=== PATIENT | female | born 1990 | race African-American/Black ===

== ENCOUNTER 2017-11-03 18:21 | Emergency (ER) | payer OTHER ==
[~2017-11-03] VITALS: Ht 162.6 cm; Wt 81.6 kg
[2017-11-03] MEDS ORDERED: NKM (18:41)
[2017-11-03 19:05] VITALS: BP 127/82
[2017-11-03] MEDS ORDERED: Dexamethasone 4mg/ml vial IVPB ONE (19:15)
[2017-11-03] MEDS ORDERED: Clindamycin 900mg 50 ML IVPB ONE (19:15)
[2017-11-03] MEDS ORDERED: Cetacaine Spray 50ml Btl TOPIC ONE (19:15)
[2017-11-03] MEDS ORDERED: Hurricaine 20% Spray ORO ONE (19:30)
[2017-11-03] MEDS ORDERED: Lidocaine 2% Visc 15ml soln ORAL ONE (19:45)
--- NOTE | 2017-11-03 19:57 | Emergency Room Report ---
History of Present Illness General Chief Complaint: Wound Recheck/Suture Removal Source: Patient Present Illness HPI 27 YO Female presents to the ED c/O Sore throat since 10/30 with fevers this past weekend. pt. has been doing mouth rinses and taking Motrin. pt. reports change in voice. She states her fever has not returned today and she is feeling slightly better. pt. reports pain is controlled at the moment and is 3/10 in severity. she reports previous pain was exacerbated with swallowing. Denies neck pain. Reports history of multiple episodes of tonsillitis since age of 7. Last incident of tonsil infection was 3 years ago. pt. reports that She was supposed to get tonsillectomy previously however was unable to due to work schedule. Denies CP, Palpitations, LOC, AMS, dizziness, Changes in Vision, Sensation, paresthesias, or a sudden severe headache. Allergies: Coded Allergies: No Known Allergies (Unverified , 11/03/17) Patient History Past Medical History: see triage record Past Surgical History: none Pertinent Family History: none Last Menstrual Period: 10/09/17 Now: No Reviewed Nursing Documentation: PMH: Agreed, PSxH: Agreed Review of Systems All Other Systems: negative except mentioned in HPI Physical Exam Vital Signs Date Time Temp Pulse Resp B/P (MAP) Pulse Ox O2 Delivery O2 Flow Rate FiO2 11/03/17 18:37 98.8 77 16 127/82 97 98.8 11/03/17 19:05 Room Air Sp02 EP Interpretation: reviewed, normal General Appearance: no apparent distress, alert, GCS 15, non-toxic Head: normocephalic, atraumatic Eyes: bilateral eye normal inspection, bilateral eye PERRL ENT: hearing grossly normal, normal voice, moist mucus membranes, other - Right tonisllar and soft palate swelling and fluctuance, Uvula is shifted to the left side. Neck: full range of motion, no meningismus Respiratory: lungs clear, normal breath sounds, speaking full sentences Cardiovascular #1: regular rate, rhythm Musculoskeletal: back normal, gait/station normal, normal range of motion, non- tender Neurologic: alert, oriented x3, responsive, motor strength/tone normal, sensory intact, speech normal, grossly normal Psychiatric: judgement/insight normal Skin: normal color, no rash, warm/dry, well hydrated Lymphatic: no adenopathy Procedures Additional Procedure Procedure Narrative -3 attempts were made to Aspirate the CORPORATE INVESTIGATOR using an 18g Spinal needle using with the cover to provide a half inch guard. -Viscous Lidocaine was used for local anesthesia, good anesthetic results were achieved. all 3 attempts were un-successful in retrieving purulent fluid. Pt. tolerated well there were no complications. Medical Decision Making PA Attestation Dr. zambrano is my supervising Physician whom patient management has been discussed with. Diagnostic Impression: Primary Impression: Peritonsillar abscess ER Course 27 YO Female presents to the ED c/O Sore throat since 10/30 with fevers this past weekend. pt. has been doing mouth rinses and taking Motrin. pt. reports change in voice. She states her fever has not returned today and she is feeling slightly better. pt. reports pain is controlled at the moment and is 3/10 in severity. she reports previous pain was exacerbated with swallowing. Denies neck pain. Reports history of multiple episodes of tonsillitis since age of 7. Last incident of tonsil infection was 3 years ago. pt. reports that She was supposed to get tonsillectomy previously however was unable to due to work schedule. Denies CP, Palpitations, LOC, AMS, dizziness, Changes in Vision, Sensation, paresthesias, or a sudden severe headache. Denies CP, Palpitations, LOC, AMS, dizziness, Changes in Vision, Sensation, paresthesias, or a sudden severe headache. Ddx considered but are not limited to: pharyngitis, strep, CORPORATE INVESTIGATOR, ludwigs angina, URI Vital signs: are WNL, pt. is afebrile H&PE are most consistent with: Right Sided CORPORATE INVESTIGATOR. ORDERS: -IV Abx- Clindamycin -Decadron 8mg IV - Percocet PO ED INTERVENTIONS: -Needle Aspiration- Attempted 3x- all were dry taps and unsuccessful in aspirating pus. pt. did tolerate well however and there were no complications. d/w pt. and mother to follow up with ENT Specialist for subsequent drainage or surgical attempts. will d/c with oral abx, anti-inflammatories and ENT follow up in 3-5 days. d/w them to return to the ED with worsening or new symptoms. DISCHARGE: At this time pt. is stable for d/c to home. Will provide printed patient care instructions, and any necessary prescriptions. Care plan and follow up instructions have been discussed with the patient prior to discharge. Last Vital Signs Date Time Temp Pulse Resp B/P (MAP) Pulse Ox O2 Delivery O2 Flow Rate FiO2 11/03/17 19:05 98.8 61 16 127/82 97 Room Air 98.8 Disposition: HOME, SELF-CARE Condition: Stable Scripts Ibuprofen* (MOTRIN*) 600 Mg Tablet 600 MG ORAL THREE TIMES A DAY, #30 TAB 0 Refills Prov: Penny Davies 11/03/17 Hydrocodone Bit/Acetaminophen 5-325* (NORCO 5-325*) 1 Each Tablet 1 TAB ORAL Q6H Y for For Pain, #6 TAB 0 Refills Prov: Penny Davies 11/03/17 Amoxicillin/Potassium Clav 875-125* (AUGMENTIN 875-125 TABLET*) 1 Each Tablet 1 TAB ORAL TWICE A DAY for 10 Days, #20 TAB Prov: Penny Davies 11/03/17 Departure Forms: Return to Work Return to Work Date: Nov 04, 2017 Work Restrictions: None Other Restrictions: symptoms have been present since 10/30/17. Return to Full Activity: Nov 04, 2017 Patient Instructions: Peritonsillar Abscess Additional Instructions: Take medications as directed. Follow up with a Primary Care Provider in 3-5 days, even if your symptoms have resolved. --Please review list of primary care clinics, if you do not already have a primary care provider Return sooner to ED if new symptoms occur, or current symptoms become worse. - Please note that this Emergency Department Report was dictated using [employer] technology software, occasionally this can lead to erroneous entry secondary to interpretation by the dictation equipment. Penny Davies Nov 03, 2017 19:57
[2017-11-03] MEDS ORDERED: oxyCODONE HCL/Acetaminophen 5/325mg ORAL ONE (21:15)
[2017-11-03] MEDS ORDERED: NORCO 5-325 TA1 EACH ORAL (21:15)
[2017-11-03] MEDS ORDERED: IBUPROFEN600 MG ORAL (21:15)
[2017-11-03] MEDS ORDERED: AUGMENTIN 875-1 EAC1 ORAL (21:15)
[2017-11-03 21:45] VITALS: BP 142/95
== END 2017-11-03 21:45 | disposition home or self-care (01) ==
LOC: EMR 18:55
DX: J36 Peritonsillar abscess (principal)
CPT/HCPCS: 10021; 96361; 96365; 96375; 99284; J1100; S0077; Z7502